=== PATIENT | male | born 1935 | race Caucasian/White ===

== ENCOUNTER 2018-06-05 10:40 | Emergency (ER) | payer MEDICARE, BC ==
--- NOTE | 2018-06-05 12:27 | EDM.PDOC ---
ED HPI GENERAL MEDICAL PROBLEM - General Chief Complaint: Upper Extremity Injury/Pain Time Seen by Provider: 06/05/18 11:40 Source of Information: Reports: Patient, Family History Limitations: Reports: No Limitations - History of Present Illness INITIAL COMMENTS - FREE TEXT/NARRATIVE: 82-year-old male fell onto his left shoulder 4 days ago, having difficulty moving his arm. The shoulder feels swollen. No pain in the elbow or wrist. He's having difficulty abducting or lifting the left arm. Onset: Sudden Duration: Day(s): (4 days ago) Location: Reports: Upper Extremity, Left shoulder Pain Score (Numeric/FACES): 5 - Related Data Allergies Allergy/AdvReac Type Severity Reaction Status Date / Time lisinopril [From Zestril] Allergy Cannot Verified 06/05/18 11:30 Remember sulfamethoxazole Allergy Cannot Verified 06/05/18 11:30 [From Bactrim] Remember trimethoprim [From Bactrim] Allergy Cannot Verified 06/05/18 11:30 Remember Home Meds: Home Meds Hydrochlorothiazide 12.5 mg PO DAILY 04/07/13 [History] Losartan [Cozaar] 50 mg PO DAILY 04/07/13 [History] Magnesium 500 mg PO BID 04/07/13 [History] Metoprolol Tartrate [Lopressor] 50 mg PO QAM 04/07/13 [History] Mycophenolate Mofetil [Cellcept] 500 mg PO BID 04/07/13 [History] Phosphorus #1 [Neutra-Phos] 250 mg PO BID 04/07/13 [History] Simvastatin 20 mg PO DAILY 04/07/13 [History] Warfarin Sodium 5 mg PO DAILY 04/07/13 [History] Metoprolol Tartrate [Lopressor] 25 mg PO QPM 07/16/13 [History] Potassium Bicarbonate/Cit Ac [Potassium 25 Meq Tablet Eff] 155 meq PO BID [History] Acetaminophen/traMADol [Ultracet] 1 tab PO ASDIRECTED 06/05/18 [History] Tacrolimus 1 mg PO BID 06/05/18 [History] Past Medical History Genitourinary History: Reports: Renal Disease - Past Surgical History Male Surgical History: Reports: Other (See Below) Other Male Surgeries/Procedures: kidney transplant Social & Family History - Tobacco Use Smoking Status *Q: Never Smoker - Caffeine Use Caffeine Use: Reports: None - Recreational Drug Use Recreational Drug Use: No Review of Systems - Review of Systems Review Of Systems: See Below Constitutional: Denies: Fever Respiratory: Reports: No Symptoms Cardiovascular: Reports: No Symptoms GI/Abdominal: Reports: No Symptoms Skin: Denies: Bruising Neurological: Reports: No Symptoms. Denies: Paresthesia Psychiatric: Reports: No Symptoms ED EXAM, GENERAL - Physical Exam Exam: See Below Exam Limited By: No Limitations General Appearance: Alert, No Apparent Distress Head: Atraumatic Neck: Supple, Non-Tender Respiratory/Chest: No Respiratory Distress, Lungs Clear Cardiovascular: Regular Rate, Rhythm Extremities: Other (Exam of the shoulders shows mild asymmetry. It is so. mewhat swollen anteriorly and very tender) Course - Vital Signs Last Recorded V/S: Last Vital Signs Temp 97.5 F 06/05/18 11:35 Pulse 110 H 06/05/18 11:35 Resp 16 06/05/18 11:35 BP 140/83 06/05/18 11:35 Pulse Ox 96 06/05/18 11:35 - Orders/Labs/Meds Orders: Active Orders 24 hr Category Date Time Status DME for Discharge [COMM] Stat Oth 06/05/18 12:25 Ordered Departure - Departure Time of Disposition: 12:40 Disposition: Home, Self-Care 01 Condition: Good Clinical Impression: Contusion of left shoulder Qualifiers: Encounter type: initial encounter Qualified Code(s): S40.012A - Contusion of left shoulder, initial encounter - Discharge Information Instructions: Contusion, [id number] Referrals: Tim Harper MD [Primary Care Provider] - Forms: ED Department Discharge Care Plan Goals: Use sling for comfort for the next several days, and recheck Sunday or Sunday next week with Dr. Patterson in the orthopedic clinic at [facility]. No recheck as needed if significant improvement. - My Orders Last 24 Hours: My Active Orders 06/05/18 12:25 DME for Discharge [COMM] Stat - Assessment/Plan Last 24 Hours: My Active Orders 06/05/18 12:25 DME for Discharge [COMM] Stat
--- NOTE | 2018-06-05 12:49 | CRLCR ---
Indication: Trauma and pain Technique: Left shoulder 3 views. Comparison: None Findings: Bones: Alignment is normal. No fractures or bone lesions. Joint spaces: Unremarkable. Soft tissues: Unremarkable. Pacemaker is present in the left chest wall. Impression: No sign of acute injury. Dictated by Vish Sue MD @ 06/05/2018 12:48:13 PM Dictated by: Vish Sue MD @ 06/05/2018 12:48:19 (Electronically Signed)
--- NOTE | 2018-06-05 12:51 | CRLCR ---
Indication: Injury and pain Technique: Left humerus 4 views Comparison: None Findings: Bones: Alignment is normal. No fractures or bone lesions. Joint spaces: Unremarkable. Soft tissues: Unremarkable. Impression: No sign of acute injury. Dictated by Vish Sue MD @ 06/05/2018 12:49:50 PM Dictated by: Vish Sue MD @ 06/05/2018 12:49:56 (Electronically Signed)
== END 2018-06-05 12:40 | disposition home or self-care (01) ==
LOC: JP.ED 10:40
DX: S40.012A Contusion of left shoulder, initial encounter (principal); Z88.8 Allergy status to other drugs, medicaments and biological substances; Z88.2 Allergy status to sulfonamides; Z88.1 Allergy status to other antibiotic agents; Z79.899 Other long term (current) drug therapy; W18.30XA Fall on same level, unspecified, initial encounter
CPT/HCPCS: 73030-LT; 73060-LT; 99283; 99283-25

== ENCOUNTER 2018-07-17 06:29 | Day surgery (SDC) | payer MEDICARE, BC ==
[2018-07-17] MEDS ORDERED: Lactated Ringers 1,000 ML IV SCH (06:30)
[2018-07-17] MEDS ORDERED: ceFAZolin 2 GM in Premix Bag 1 BAG IV ONE (06:30)
[2018-07-17] MEDS ORDERED: Nozin Nasal Sanitizer NASBOTH ONE (06:45)
[2018-07-17] MEDS ORDERED: Bupivacaine 0.5% 50 ML MDV ONE ×2 (06:46→08:31)
[2018-07-17] MEDS ORDERED: Midazolam 1 MG/ML 2 ML SDV ONE (07:17)
[2018-07-17] MEDS ORDERED: Propofol 200 MG/20 ML SDV ONE ×2 (07:17→08:12)
[2018-07-17] MEDS ORDERED: fentaNYL 100 MCG/2 ML SDV ONE (07:17)
[2018-07-17] MEDS ORDERED: Acetaminophen/oxyCODONE 325-5 MG Tab PO ONE (12:00)
--- NOTE | 2018-07-17 16:20 | OR ---
DATE OF PROCEDURE: 07/17/2018 PREOPERATIVE DIAGNOSES: 1. Traumatic rotator cuff tear, left shoulder. 2. Long head biceps rupture, left shoulder. 3. Subscapularis tear, left shoulder. POSTOPERATIVE DIAGNOSES: 1. Traumatic rotator cuff tear, left shoulder, supraspinatus and infraspinatus, moderate- size with retraction. 2. Biceps tendon rupture, long head, left shoulder. 3. Subscapularis rupture, chronic. 4. Degenerative labral tear, left shoulder. PROCEDURE: Arthroscopy of left shoulder with subacromial decompression, acromioplasty, and arthroscopic rotator cuff repair. ANESTHESIA: Regional block with sedation. INDICATIONS: Mr. Landeros is an 83-year-old gentleman, who sustained a fall resulting in left shoulder pain and weakness. He has had difficulty with any kind of abduction or overhead lifting. Examination and ultrasound studies are consistent with a traumatic rupture of the rotator cuff. Ultrasound also demonstrates rupture of the long head of the biceps and difficulty detecting the subscapularis tendon. He now presents for arthroscopy of the left shoulder with repair of rotator cuff, possible repair of subscapularis, and decompression. Risks, benefits, potential complications of the procedure were discussed, and he agrees to proceed. PROCEDURE IN DETAIL: After adequate anesthesia was obtained, the patient was placed in the lateral decubitus position. All bony prominences were well padded, and he was secured with the velazquez bag. Left shoulder and arm were then prepped and draped in a sterile fashion and 10 pounds of traction was placed in the shoulder traction unit. A posterior portal was established. Glenohumeral joint was inspected. This revealed mild to moderate degenerative changes of the labrum. Articular surface of the humeral head and glenoid were intact. Biceps tendon was absent at its attachment to the superior labrum and appeared to be chronic in nature. Supraspinous and infraspinatus showed tear with retraction of little over a centimeter. The subscapularis also showed rupture which appeared to be chronic as the edge of the tendon could not be easily delineated and was thoroughly encased in scar tissue. Scope was then withdrawn and placed in the subacromial space. Using a combination of shaver and radiofrequency ablation wand, the bursa was cleared. Soft tissues were cleared from the undersurface of the acromion including release of the coracoacromial ligament. A bur was then utilized to perform an acromioplasty removing the anterolateral edge of the acromion, resecting approximately 4 mm. The edge of the rotator cuff was identified as was the footprint on the superior aspect of the tuberosity. Laminated tear going into the infraspinatus was also present posteriorly. This was debrided with a shaver. The edge of the tendon was grasped with the arthroscopic grasper to assess retraction and ability to mobilize the tendon to the tuberosity. The tendon could be mobilized out beyond the edge of the articular surface onto the footprint. An elevator was used to release some mild adhesions. A bur was then used to decorticate the superior surface of the tuberosity. Shaver was used to lightly roughen the undersurface of the edge of the cuff tear. A small stab incision was made off the edge of the acromion and an awl was placed to create tunnels for the suture anchors. Two Mitek Healix 4.5 suture anchors were placed , one anterior and one posterior on the footprint. Both suture pairs from the posterior anchor were then passed using the Mitek Expressew device into the posterior portion of the tear. Two limbs of one of the suture pairs from the anterior anchor were brought up through the edge of the tear. One limb of the second pair was brought through the very anterior aspect of the tear as there was not sufficient room in anterior portion of the cuff to place both limbs. Sutures were then tied down using standard arthroscopic technique. Both limbs of the posterior suture pair were then utilized for a lateral row suture bridge. Soft tissues were cleared just off the edge of the tuberosity with the shaver. Awl was used to create a tunnel for a knotless suture anchor. The 4 limbs of the posterior suture pairs were then brought through the knotless anchor and the anchor was secured into the tunnel with good tension on the sutures. This provided full contact of the cuff to the tuberosity. All sutures were cut. Level of the acromioplasty was evaluated and found to be adequate. Shoulder was drained. Port sites were then closed in a standard fashion. Sterile dressing was applied. The patient was taken from the operating room in a stable condition with the sling in place. Johnson Patterson MD /[id number] BARRETT
== END 2018-07-17 13:00 | disposition home or self-care (01) ==
LOC: JP.SDS 06:29
PROVIDERS: ATTEND Specialist
DX: S46.012A Strain of muscle(s) and tendon(s) of the rotator cuff of left shoulder, initial encounter (principal); S46.112A Strain of muscle, fascia and tendon of long head of biceps, left arm, initial encounter; S43.492A Other sprain of left shoulder joint, initial encounter; I25.10 Atherosclerotic heart disease of native coronary artery without angina pectoris; I48.2 Chronic atrial fibrillation; I45.10 Unspecified right bundle-branch block; I12.9 Hypertensive chronic kidney disease with stage 1 through stage 4 chronic kidney disease, or unspecified chronic kidney disease; E11.22 Type 2 diabetes mellitus with diabetic chronic kidney disease; N18.3 Chronic kidney disease, stage 3 (moderate); G47.33 Obstructive sleep apnea (adult) (pediatric); X58.XXXA Exposure to other specified factors, initial encounter; Z88.2 Allergy status to sulfonamides; Z88.8 Allergy status to other drugs, medicaments and biological substances; Z95.0 Presence of cardiac pacemaker; Z86.73 Personal history of transient ischemic attack (TIA), and cerebral infarction without residual deficits; Z79.84 Long term (current) use of oral hypoglycemic drugs; Z79.01 Long term (current) use of anticoagulants; Z79.82 Long term (current) use of aspirin; Z79.899 Other long term (current) drug therapy
CPT/HCPCS: 29826; 29827; 36415; 80048; 85027; 85610; A9270; C1713; J0690; J2250; J2704; J3010; J3490; J7120

== ENCOUNTER 2020-12-03 23:17 | Emergency (ER) | payer MEDICARE, BC ==
[2020-12-03] MEDS ORDERED: Acetaminophen/oxyCODONE 325-5 MG Tab PO STA (23:47)
--- NOTE | 2020-12-03 23:54 | EDM.PDOC ---
ED HPI GENERAL MEDICAL PROBLEM - General Chief Complaint: Upper Extremity Injury/Pain Stated Complaint: RT SHOULDER PAIN Time Seen by Provider: 12/03/20 23:40 Source of Information: Reports: Patient, Old Records History Limitations: Reports: No Limitations - History of Present Illness INITIAL COMMENTS - FREE TEXT/NARRATIVE: 85 yo male tripped yesterday about 11 am and fell hitting his R lateral shoulder on a car. He says the pain was initially tolerable, but has gotten progressively worse. No self tx. Also has R wrist and thumb pain. Is here with family. 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: Other (see below) (none) - Related Data Allergies Allergy/AdvReac Type Severity Reaction Status Date / Time lisinopril [From Zestril] Allergy Cannot Verified 07/17/18 07:16 Remember sulfamethoxazole Allergy Cannot Verified 07/17/18 07:16 [From Bactrim] Remember trimethoprim [From Bactrim] Allergy Cannot Verified 07/17/18 07:16 Remember Home Meds: Home Meds Hydrochlorothiazide 12.5 mg PO DAILY 04/07/13 [History] Losartan [Cozaar] 25 mg PO DAILY 04/07/13 [History] Metoprolol Tartrate [Lopressor] 50 mg PO QAM 04/07/13 [History] Simvastatin 20 mg PO DAILY 04/07/13 [History] Warfarin Sodium 5 mg PO DAILY 04/07/13 [History] mycophenolate mofetiL [Cellcept] 500 mg PO BID 04/07/13 [History] Metoprolol Tartrate [Lopressor] 25 mg PO QPM 07/16/13 [History] Potassium Bicarbonate/Cit Ac [Potassium 25 Meq Tablet Eff] 155 meq PO BID 07/16/13 [History] Tacrolimus 1 mg PO BID 06/05/18 [History] Aspirin [Ecotrin EC] 81 mg PO DAILY 06/11/18 [History] Folic Acid/Multivit-Min/Lutein [Centrum Silver Chewable Tablet] 1 tab PO DAILY 06/11/18 [History] Hydrocortisone Valerate [Hydrocortisone Valerate 0.2% Crm] 1 applic TOP .2 TIMES A WEEK 06/11/18 [History] Magnesium Oxide 500 mg PO BID 06/11/18 [History] Mupirocin Oint [Bactroban Oint] 1 applic TOP DAILY 06/11/18 [History] Nitroglycerin [Nitrostat] 0.4 mg SL ASDIRECTED 06/11/18 [History] Tacrolimus 0.5 mg PO DAILY 06/11/18 [History] Triamcinolone Acetonide [Kenalog 0.1% Crm] 1 applic TOP .2 TIMES A WEEK 06/11/18 [History] fluorouraciL [Efudex 5% Cream] 1 applic TOP .4 TIMES A WEEK 06/11/18 [History] glipiZIDE [Glipizide ER] 2.5 mg PO DAILY 06/11/18 [History] metFORMIN [Glucophage XR] 500 mg PO DAILY 06/11/18 [History] Acetaminophen/traMADol [Ultracet] 1 tab PO Q6H PRN 11/07/18 [History] traMADol [Ultram] 50 mg PO Q6H PRN #16 tab 01/13/19 [Rx] Past Medical History HEENT History: Reports: Impaired Vision Cardiovascular History: Reports: Hypertension, MS, Pacemaker, Stents Respiratory History: Reports: None Gastrointestinal History: Reports: None Genitourinary History: Reports: Renal Disease Musculoskeletal History: Reports: Other (See Below) Other Musculoskeletal History: L shoulder pain, fell 05/31/18. s/p L RCR 07/17/18 Neurological History: Reports: None Psychiatric History: Reports: None Endocrine/Metabolic History: Reports: Diabetes, Type II Hematologic History: Reports: None Immunologic History: Reports: Solid Organ Transplant Oncologic (Cancer) History: Reports: None Dermatologic History: Reports: None - Infectious Disease History Infectious Disease History: Reports: Chicken Pox - Past Surgical History Head Surgeries/Procedures: Reports: None HEENT Surgical History: Reports: None GI Surgical History: Reports: Appendectomy Male Surgical History: Reports: None, Other (See Below) Other Male Surgeries/Procedures: kidney transplant Endocrine Surgical History: Reports: None Musculoskeletal Surgical History: Reports: None, Shoulder Surgery Other Musculoskeletal Surgeries/Procedures:: LT RCR 07-17-18 Social & Family History - Caffeine Use Caffeine Use: Reports: None Review of Systems - Review of Systems Review Of Systems: See Below Constitutional: Reports: No Symptoms Musculoskeletal: Reports: Shoulder Pain (right), Joint Pain (R wrist). Denies: Joint Swelling Skin: Reports: No Symptoms Neurological: Reports: No Symptoms ED EXAM, GENERAL - Physical Exam Exam: See Below Exam Limited By: No Limitations General Appearance: Alert, WD/WN, Mild Distress Extremities: Normal Inspection, No Pedal Edema, Limited Range of Motion (of R shoulder due to pain. ), Other (tenderness maximally over the R A/C joint, R wrist has a fairly good ROM as does the R thumb. ). No: Normal Range of Motion, Non-Tender, Pedal Edema, Increased Warmth, Redness Neurological: Alert, Oriented, CN II-XII Intact, Normal Cognition, No Motor/Sensory Deficits Psychiatric: Normal Affect, Normal Mood Skin Exam: Warm, Dry, Intact, Normal Color, No Rash Course - Orders/Labs/Meds Orders: Active Orders 24 hr Category Date Time Status Shoulder Comp Rt [CR] Stat Exams 12/03/20 23:22 Taken Wrist Comp Min 3V Rt [CR] Stat Exams 12/03/20 23:48 Ordered Meds: Medications Discontinued Medications Generic Name Dose Route Start Last Admin Trade Name Freq PRN Reason Stop Dose Admin Oxycodone/Acetaminophen 1 tab 12/03/20 23:47 12/03/20 23:51 Acetaminophen/Oxycodone 325-5 Mg Tab PO 12/03/20 23:48 1 tab ONETIME STA Administration - Radiology Interpretation Free Text/Narrative:: R shoulder X-ray-neg R wrist X-ray-neg Departure - Departure Time of Disposition: 00:10 Disposition: Home, Self-Care 01 Condition: Fair Clinical Impression: Derangement of right acromioclavicular joint Right wrist sprain Qualifiers: Encounter type: initial encounter Qualified Code(s): S63.501A - Unspecified sprain of right wrist, initial encounter - Discharge Information *PRESCRIPTION DRUG MONITORING PROGRAM REVIEWED*: No *COPY OF PRESCRIPTION DRUG MONITORING REPORT IN PATIENT RICARDO: No Instructions: Shoulder Pain, [id number], Wrist Sprain, Adult Referrals: Tim Harper MD [Primary Care Provider] - Forms: ED Department Discharge Additional Instructions: Wear your splint and sling until your injuries heal. Recheck with your provider next week. Take [place] OR acetaminophen for pain relief. No use of the right arm until cleared. Consume ample amounts of fluids and fiber to prevent constipation from the hydrocodone. - My Orders Last 24 Hours: My Active Orders 12/03/20 23:22 Shoulder Comp Rt [CR] Stat 12/03/20 23:48 Wrist Comp Min 3V Rt [CR] Stat - Assessment/Plan Last 24 Hours: My Active Orders 12/03/20 23:22 Shoulder Comp Rt [CR] Stat 12/03/20 23:48 Wrist Comp Min 3V Rt [CR] Stat
--- NOTE | 2020-12-06 09:37 | CR ---
Shoulder Comp Rt, Wrist Comp Min 3V Rt CLINICAL HISTORY: Pain, fall FINDINGS: There is no acute fracture or dislocation in the right shoulder. There is some minimal periarticular spurring the glenohumeral joint. Impression: No fracture or dislocation Minimal osteoarthritic change Wrist Comp Min 3V Rt CLINICAL HISTORY: Fall FINDINGS: There is no acute fracture or dislocation within the right wrist. There is moderate osteoarthritic change at the trapezial junctions. There is narrowing of the radiocarpal joint. Impression: Osteoarthritic change No fracture or dislocation
== END 2020-12-04 00:40 | disposition home or self-care (01) ==
LOC: JP.ED 23:17
DX: S63.501A Unspecified sprain of right wrist, initial encounter (principal); M24.811 Other specific joint derangements of right shoulder, not elsewhere classified; I25.2 Old myocardial infarction; I10 Essential (primary) hypertension; E11.9 Type 2 diabetes mellitus without complications; Z95.5 Presence of coronary angioplasty implant and graft; Z88.1 Allergy status to other antibiotic agents; Z88.8 Allergy status to other drugs, medicaments and biological substances; Z79.01 Long term (current) use of anticoagulants; Z79.899 Other long term (current) drug therapy; Z79.82 Long term (current) use of aspirin; Z79.84 Long term (current) use of oral hypoglycemic drugs; W18.09XA Striking against other object with subsequent fall, initial encounter
CPT/HCPCS: 73030; 73110; 99283; A9270

== ENCOUNTER 2021-03-14 01:34 | Emergency (ER) | payer MEDICARE, BC | END 2021-03-14 03:03 | disposition home or self-care (01) | LOC: JP.ED 01:34 | DX: R04.0 Epistaxis (principal); I10 Essential (primary) hypertension; I25.2 Old myocardial infarction; E11.9 Type 2 diabetes mellitus without complications; D68.9 Coagulation defect, unspecified; Z95.0 Presence of cardiac pacemaker; Z88.1 Allergy status to other antibiotic agents; Z88.8 Allergy status to other drugs, medicaments and biological substances; Z79.899 Other long term (current) drug therapy | CPT/HCPCS: 99283; 99284 ==

== ENCOUNTER 2025-02-07 21:03 | Emergency (ER) | payer MEDICARE, BC ==
[2025-02-07 22:16] LABS: PLATELET COUNT,PLT 152 K/uL (130-375); RED BLOOD CELL COUNT 4.15 M/uL (4.14-5.76); WHITE BLOOD CELL COUNT,WBC 12.9 K/uL (3.2-11.0)
[2025-02-07 22:25] LABS: BAND ABSOLUTE MAN 0.77 K/uL; BAND PERCENT MAN 6 % (5-11); LYMPHOCYTES ABSOLUTE MAN 0.26 K/uL (0.8-3.3); LYMPHOCYTES PERCENT MAN 2 % (24-44); MONOCYTES ABSOLUTE MAN 0.26 K/uL (0.20-0.90); MONOCYTES PERCENT MAN 2 % (2-6); NEUTROPHILS ABSOLUTE MAN 11.61 K/uL (1.0-7.6); SEG NEUTROPHILS PERCENT MAN 90 % (36-66)
[2025-02-07 22:33] LABS: BLOOD UREA NITROGEN,BUN 42.0 mg/dL (7-18); CARBON DIOXIDE,CO2 27.0 mmol/L (21-32); CHLORIDE,CL 100.0 mmol/L (100-108); CREATININE 2.3 mg/dL (0.8-1.3); EST CRCL DRUG DOSING (CG) 21.07 mL/min; ESTIMATED GFR 26.0 mL/min (>60); GLUCOSE RANDOM 187.0 mg/dL (74-106); POTASSIUM,K 3.1 mmol/L (3.6-5.2); SODIUM,NA 136.0 mmol/L (140-148)
[2025-02-07 22:40] LABS: CORONAVIRUS COVID-19 NAA NEGATIVE (NEGATIVE); INFLUENZA A NAA NEGATIVE (NEGATIVE); INFLUENZA B NAA NEGATIVE (NEGATIVE); RESPIRATORY SYNCYTIAL VIR NAA NEGATIVE (NEGATIVE)
[2025-02-07] MEDS: NS + KCl 20mEq/L 1,000 ML IV SCH (22:50)
[2025-02-07] MEDS: Potassium Chloride 20 MEQ Tab.ER PO ONE (22:50)
[2025-02-07 23:21] LABS: LACTIC ACID 1.2 mmol/L (0.4-2.0)
== END 2025-02-08 02:10 | disposition other institution (70) ==
LOC: JP.ED 21:03
DX: J18.9 Pneumonia, unspecified organism (principal); I10 Essential (primary) hypertension; I25.2 Old myocardial infarction; E11.9 Type 2 diabetes mellitus without complications; M19.90 Unspecified osteoarthritis, unspecified site; Z79.899 Other long term (current) drug therapy; Z79.01 Long term (current) use of anticoagulants; Z88.2 Allergy status to sulfonamides; Z88.8 Allergy status to other drugs, medicaments and biological substances; Z95.0 Presence of cardiac pacemaker; Z90.49 Acquired absence of other specified parts of digestive tract
CPT/HCPCS: 36415; 71045; 80048; 83605; 84132; 85025; 86140; 87040; 87637; 96365; 96366; 96375; 99285; A9270; J0696; J3480